=== PATIENT | male | born 1970 | race Caucasian/White ===

== ENCOUNTER 2016-09-30 04:49 | Inpatient (IN) | payer OTHER ==
[~2016-09-30] VITALS: Ht 185.4 cm; Wt 76.4 kg
--- NOTE | ~2016-09-30 | DS ---
Unit #: [id number] #: [id number] Patient: JESSE MONACO [id number] [address] [address] [id number] I MR#: [id number] NAME: JESSE MONACO ROOM: 313 Age: 46 Sex: M Admission Date: 10/01/2016 : 1970 Discharge Date: 10/03/2016 Attending Physician: Stevie Contreras M.D. Primary Care Physician: Henrietta Rondon M.D. DISCHARGE SUMMARY PERTINENT HISTORY AND HOSPITAL COURSE The patient is a 46-year-old male with a history significant for drinking vodka daily over the past ten years. He presented with symptoms of vomiting blood, which suddenly started the night of the admission. During his admission the patient underwent an upper endoscopy that demonstrated esophageal varices. The varies were banded. He had no further episodes of hematemesis. DISCHARGE DIAGNOSES 1. Esophageal variceal bleeding. 2. Alcohol abuse independence. 3. Liver cirrhosis with portal hypertension. DISCHARGE MEDICATIONS 1. Nadolol 20 mg tab 1 p.o. once daily. 2. Protonix 40 mg p.o. once daily. DISCHARGE INSTRUCTIONS Followup with web marketing intern as an outpatient. Dictated by... Albina Muro/rosie TD: 10/06/2016 09:58 JOB #: [id number] DISCHARGE SUMMARY Page 1 of 1 X X DISCHARGE SUMMARY
--- NOTE | ~2016-09-30 | OR ---
Unit #: [id number] #: [id number] Patient: JESSE MONACO [id number] [address] [address] [id number] I MR#: [id number] NAME: JESSE MONACO ROOM: 313 Date of Procedure: 10/01/2016 Admission Date: 10/01/2016 Surgeon: Umair Everett M.D. : 1970 Attending Physician: Stevie Contreras M.D. Primary Care Physician: Henrietta Rondon M.D. OPERATIVE REPORT PROCEDURES PERFORMED Esophagogastroduodenoscopy with banding of esophageal varices. INDICATIONS FOR PROCEDURE A 46-year-old gentleman, who presented with upper GI bleeding. MEDICATIONS Monitored anesthesia. POSTOPERATIVE FINDINGS 1. Grade 3 esophageal varices. Six bands were placed. 2. Esophageal ring and hiatal hernia. 3. Diffuse gastropathy. 4. Normal duodenum and distal duodenum. PLAN Please see inpatient orders for details. DESCRIPTION OF PROCEDURE The patient was explained of the procedure, risks, and benefits along with risks and benefits of anesthesia. He was brought to the endoscopy room. Propofol anesthesia was given. Bite block was placed. The scope was passed down the mouth into the esophagus, stomach, duodenum, and distal duodenum. Findings as described. Six bands were placed in the esophagus using a multi-shooter. Gently, the scope was pulled out. He tolerated it well. No major complications were seen. Dictated by... Albina Ngo/loganl TD: 10/01/2016 12:52 JOB #: [id number] Unit #: [id number] #: [id number] Patient: JESSE MONACO OPERATIVE REPORT Page 1 of 1 X Umair Everett MD X PROCEDURE OPERATIVE NOTE
--- NOTE | ~2016-09-30 | CR72 ---
[facility] A Service of [facility] & [facility] RADIOLOGY TEXT RESULTS PATIENT: JESSE MONACO LOCATION: [facility] 313-01 : 72 UNIT #: [id number] AGE: [address]: LAYNE HAINES V SEX: M ORDER DR: [id number] [facility] [address] [place], [place] [address] [id number] I MR#: [id number] Acc #: [id number] NAME: JESSE MONACO : 1970 SEX: M STUDY DATE/TIME: 09/30/2016 6:38 UNIT: [address] ROOM: [facility] STUDY DESCRIPTION: CR Chest Single View Portable Attending Physician: Layne Haines M.D. Ordering Physician: Estuardo Motta M.D. Primary Care Physician: Henrietta Rondon M.D. MEDICAL IMAGING REPORT This report is preliminary unless electronic signature is present EXAM Single view chest dated 09/30/16 at 0638 hours. COMPARISON None. HISTORY Shortness of air, nausea, vomiting blood for the last 2 days. FINDINGS Single view of the chest was obtained. A single AP portable view of the chest shows both lungs to be clear. The heart is normal in size. The mediastinal contour is normal. No significant bone abnormalities are seen. IMPRESSION Normal portable chest. Dictated by... Mia Lazcano M.D. THIS IS AN ELECTRONICALLY VERIFIED REPORT Mia Lazcano M.D. at 10/02/2016 5:22 PM CPR/pc TD: 09/30/2016 10:46 JOB #: [id number] MEDICAL IMAGING REPORT Page 1 of 1 COPY
--- NOTE | ~2016-09-30 | EKG ---
PATIENT: JESSE MONACO UNIT #: [id number] Ventricular Rate: 96 BPM Atrial Rate: 96 BPM P-R Interval: 152 ms QRS Duration: 88 ms Q-T Interval: 382 ms QTC Calculation(Bezet): 482 ms P [place]: 36 degrees Calculated R [place]: 11 degrees Calculated T [place]: 4 degrees Diagnosis Line: Normal sinus rhythm Diagnosis Line: Low voltage QRS Diagnosis Line: Nonspecific T wave abnormality Diagnosis Line: Abnormal ECG Diagnosis Line: No previous ECGs available Diagnosis Line: Confirmed by SHANTELL SILVA MD ([id number]) on Diagnosis Line: 09/30/2016 3:29:43 PM INTERPRETING MD: ERNESTINE
--- NOTE | ~2016-09-30 | US6 ---
[facility] A Service of [facility] & [facility] RADIOLOGY TEXT RESULTS PATIENT: JESSE MONACO LOCATION: [facility]3A 313-01 : 72 UNIT #: [id number] AGE: [address]: LAYNE HAINES V SEX: M ORDER DR: [id number] [facility] [address] [place], [place] [address] [id number] I MR#: [id number] Acc #: [id number] NAME: JESSE MONACO : 1970 SEX: M STUDY DATE/TIME: 10/01/2016 17:05 UNIT: C3A U ROOM: 313 STUDY DESCRIPTION: US Abdominal Limited Attending Physician: Layne Haines M.D. Ordering Physician: Umair Everett M.D. Primary Care Physician: Henrietta Rondon M.D. MEDICAL IMAGING REPORT This report is preliminary unless electronic signature is present EXAM Ultrasound abdomen limited HISTORY Nausea with vomiting blood for 1 day. No history of abdominal surgery. COMMENT Realtime ultrasonography of the right upper quadrant performed. Comparison is made to a study from 12/22/2011. The liver echotexture is abnormally coarsened and the margins of the liver are irregular. Liver is about 18 cm in sagittal dimension. There is ascites around the liver in the right upper quadrant. Findings are highly suggestive of cirrhosis. This is not a vascular study therefore the status of the hepatic vasculature is not studied. The intrahepatic inferior vena cava is grossly patent in portions. The gallbladder is unremarkable without evidence of stone, wall thickening, or discrete pericholecystic fluid allowing for the presence of preexisting ascites. The common duct is about 7 mm which is mildly enlarged for age group. The right kidney measures 12 x 5.8 x 7.2 cm. Parenchymal thickness is 1.6 cm. No hydronephrosis, shadowing calculus or focal mass appreciated on the right. Pancreas is obscured by overlying bowel gas. IMPRESSION 1. Findings are most consistent with the development of liver, psoriasis since the study of 2011 with ascites in the right upper quadrant around the liver. I would recommend further clinical evaluation. 2. There is no evidence for gallstone, gallbladder wall thickening or pericholecystic fluid. There is however mild enlargement of the common bile duct to about 7 mm. 3. The pancreas is not seen and is obscured by overlying bowel gas. [facility] A Service of [facility] & [facility] RADIOLOGY TEXT RESULTS PATIENT: JESES MONACO LOCATION: [facility] 313-01 : 71 UNIT #: [id number] AGE: [address]: LAYNE HAINES V SEX: M ORDER DR: STAT * RESULT Dictated by... Darling Pimentel M.D. THIS IS AN ELECTRONICALLY VERIFIED REPORT Darling Pimentel M.D. at 10/01/2016 10:58 PM SAMMY/fuad TD: 10/01/2016 18:31 JOB #: [id number] MEDICAL IMAGING REPORT Page 1 of 1 COPY
--- NOTE | ~2016-09-30 | HP ---
Unit #: [id number] #: [id number] Patient: JESSE MONACO [id number] [address] [address] [id number] I MR#: [id number] NAME: JESSE MONACO ROOM: 313 Age: 46 Sex: M Admission Date: 09/30/2016 : 1970 Attending Physician: Stevie Contreras M.D. Primary Care Physician: Henrietta Rondon M.D. HISTORY AND PHYSICAL HISTORY OF PRESENT ILLNESS The patient is a 46-year-old man with a history of drinking 12 oz of vodka daily for over the past ten years. He presents to the emergency department in the middle of the night after vomiting blood. Sudden onset duration prior to arrival. Timing intermittent, intensity severe. No aggravating or relieving factors. PAST MEDICAL HISTORY Hypertension. PAST SURGICAL HISTORY None. MEDICATIONS Not currently on any medications. ALLERGIES Codeine. FAMILY HISTORY Negative. SOCIAL HISTORY Drinks 12 oz of vodka daily for over ten years. REVIEW OF SYSTEMS Positive for nausea. Positive for vomiting. Positive for hematemesis. As per HPI. The rest of the 12 point review of system negative. PHYSICAL EXAMINATION GENERAL: Awake, alert, well built, well nourished. HEENT: Atraumatic and normocephalic. Oropharynx clear. NECK: Supple. Trachea at midline. CARDIOVASCULAR: Regular rate and rhythm. No murmurs. LUNGS: Clear to auscultation bilaterally. ABDOMEN: Soft, nondistended, bowel sounds positive. EXTREMITIES: No edema. No cyanosis. NEUROLOGIC: No focal deficits. DIAGNOSTIC STUDIES LABS: Hemoglobin 10.5, hematocrit 31.9, platelets 121, WBC 5.3. BUN 12, creatinine 0.5, sodium 137, potassium 3.9, AST 93, ALT 25, alk phos 115, INR 1.3. Unit #: [id number] #: [id number] Patient: JESSE MONACO ASSESSMENT AND PLAN 1. Acute gastrointestinal bleeding with hematemesis: Plan is order IV Protonix for gastric acid suppression. Order a gastroenterology consultation. Order IV fluids for hydration. Monitor hemoglobin and hematocrit. Type and screen. 2. Alcohol abuse and dependence: Plan is to order CIWA protocol. Order IV thiamine. 1. Dictated by Albina Muro TD: 09/30/2016 12:26 JOB #: [id number] HISTORY AND PHYSICAL Page 1 of 1 X X HISTORY AND PHYSICAL
[~2016-09-30 04:49] MED LIST: BACTROBAN15 GM TOP; BENAZEPRIL HCL40 MG PO; DOMEBORO PACKE1 EACH TP; NORVASC PO; [UNRECOGNIZED DRUG - MIXTURE] TOP
[2016-09-30 05:26] LABS: BASOPHIL% 0.3 % (0-2.5); EOSINOPHIL% 0.8 % (0.0-7.0); HEMATOCRIT 31.9 % (38.0-50.0); HEMOGLOBIN 10.5 gm/dL (13.0-16.0); LYMPHOCYTE# 1.2 X10e3 (1.0-3.5); LYMPHOCYTE% 22.1 % (17.0-45.0); MEAN CELL VOLUME 100.6 FL (83-96); MEAN CORPUSCULAR HEMOGLOBIN 33.3 PG (28-34); MEAN CORPUSCULAR HGB CONC 33.1 g/dL (30-36); MONOCYTE# 0.7 X10e3 (0-1.0); MONOCYTE% 13.1 % (3.0-12.0); NEUTROPHIL# 3.4 X10e3 (1.5-7.1); NEUTROPHIL% 63.7 % (40-75); PLATELET COUNT 121 X10e3 (140-420); RED BLOOD COUNT 3.17 X10e (3.90-5.60); RED CELL DISTRIBUTION WIDTH 15.3 % (11.0-15.5); WHITE BLOOD COUNT 5.3 X10e3 (4.0-10.5)
[2016-09-30 05:27] LABS: DIFF IND NO
[2016-09-30 05:50] LABS: URINE SOURCE CLEAN CATCH
[2016-09-30 05:54] LABS: URINE APPEARANCE CLEAR; URINE BILIRUBIN NEG (NEG); URINE BLOOD NEG (NEG); URINE COLOR DK YELLOW; URINE GLUCOSE NEG (NEG); URINE KETONE 2+ (NEG); URINE LEUKOCYTE ESTERASE NEG (NEG); URINE NITRATE NEG (NEG); URINE PH 6.5 (5-8); URINE PROTEIN NEG (NEG); URINE SPECIFIC GRAVITY 1.024 (1.003-1.035)
[2016-09-30 05:58] LABS: CULTURE INDICATED? NO
[2016-09-30 06:00] LABS: ALBUMIN SERUM 3.5 g/dL (3.5-5.0); BILIRUBIN, DIRECT 0.5 mg/dL (0.0-0.2); BILIRUBIN,INDIRECT 0.8 mg/dL (0.0-0.9); BILIRUBIN,TOTAL 1.3 mg/dL (0.2-2.0); CALCIUM SERUM 8.4 mg/dL (8.4-10.2); CREATININE SERUM 0.4 mg/dL (0.6-1.4); GLOM FILT RATE Estimated 143.5 mL/min (>60); POTASSIUM 3.7 mmol/L (3.5-5.1); PROTEIN TOTAL SERUM 7.3 g/dL (6.0-8.3)
[2016-09-30 06:11] LABS: INR 1.3; PARTIAL THROMBOPLASTIN TIME 27.8 SECONDS (23.5-31.3); PROTHROMBIN TIME (PATIENT) 13.7 SECONDS (10.0-11.7)
[2016-09-30 10:15] LABS: ALBUMIN SERUM 3.3 g/dL (3.5-5.0); BILIRUBIN,TOTAL 1.6 mg/dL (0.2-2.0); CREATININE SERUM 0.5 mg/dL (0.6-1.4); GLOM FILT RATE Estimated 130.9 mL/min (>60); POTASSIUM 3.9 mmol/L (3.5-5.1); PROTEIN TOTAL SERUM 6.8 g/dL (6.0-8.3)
[2016-09-30 10:57] LABS: THYROID STIMULATING HORMONE 1.66 uIU/ml (0.34-5.60)
[2016-09-30 11:04] LABS: FREE THYROXIN (T4) 1.04 ng/dL (0.58-1.64)
[2016-09-30 11:59] LABS: HEMATOCRIT 30.4 % (38.0-50.0); MEAN CELL VOLUME 100.6 FL (83-96); MEAN CORPUSCULAR HGB CONC 32.8 g/dL (30-36); MEAN PLATELET VOLUME 8.1 FL (6.5-11.5); RED BLOOD COUNT 3.02 X10e (3.90-5.60); RED CELL DISTRIBUTION WIDTH 15.4 % (11.0-15.5); WHITE BLOOD COUNT 5.1 X10e3 (4.0-10.5)
[2016-09-30 17:40] LABS: HEMATOCRIT 28.7 % (38.0-50.0); HEMOGLOBIN 9.8 gm/dL (13.0-16.0)
[2016-10-01 01:07] LABS: HEMATOCRIT 29.1 % (38.0-50.0); HEMOGLOBIN 9.5 gm/dL (13.0-16.0)
[2016-10-01 05:35] LABS: HEMATOCRIT 28.2 % (38.0-50.0); HEMOGLOBIN 9.3 gm/dL (13.0-16.0)
[2016-10-01 12:15] LABS: HEMATOCRIT 30.1 % (38.0-50.0)
[2016-10-02 06:03] LABS: HEMATOCRIT 29.3 % (38.0-50.0); HEMOGLOBIN 9.8 gm/dL (13.0-16.0); MEAN CELL VOLUME 101.9 FL (83-96); MEAN CORPUSCULAR HEMOGLOBIN 34.1 PG (28-34); MEAN CORPUSCULAR HGB CONC 33.5 g/dL (30-36); MEAN PLATELET VOLUME 8.5 FL (6.5-11.5); RED BLOOD COUNT 2.87 X10e (3.90-5.60); RED CELL DISTRIBUTION WIDTH 15.2 % (11.0-15.5); WHITE BLOOD COUNT 4.6 X10e3 (4.0-10.5)
[2016-10-02 06:58] LABS: BILIRUBIN,TOTAL 1.9 mg/dL (0.2-2.0); CALCIUM SERUM 7.8 mg/dL (8.4-10.2); CREATININE SERUM 0.5 mg/dL (0.6-1.4); GLOM FILT RATE Estimated 130.9 mL/min (>60); POTASSIUM 3.8 mmol/L (3.5-5.1); PROTEIN TOTAL SERUM 6.4 g/dL (6.0-8.3)
[2016-10-03 03:15] LABS: URINE APPEARANCE CLEAR; URINE BILIRUBIN NEG (NEG); URINE BLOOD NEG (NEG); URINE COLOR DK YELLOW; URINE GLUCOSE NEG (NEG); URINE KETONE NEG (NEG); URINE LEUKOCYTE ESTERASE NEG (NEG); URINE NITRATE NEG (NEG); URINE PROTEIN NEG (NEG); URINE SPECIFIC GRAVITY 1.013 (1.003-1.035)
[2016-10-03 03:25] LABS: AMPHETAMINE NEG (NEG); BARBITURATES NEG (NEG); BENZODIAZEPINES NEG (NEG); COCAINE NEG (NEG); MARIJUANA NEG (NEG); OPIATES NEG (NEG); TRICYCLIC ANTIDEPRESSANTS NEG (NEG); U METHADONE NEG (NEG)
[2016-10-03 05:53] LABS: HEMOGLOBIN 9.5 gm/dL (13.0-16.0); MEAN CORPUSCULAR HEMOGLOBIN 34.5 PG (28-34); MEAN CORPUSCULAR HGB CONC 33.8 g/dL (30-36); MEAN PLATELET VOLUME 8.6 FL (6.5-11.5); RED BLOOD COUNT 2.75 X10e (3.90-5.60); RED CELL DISTRIBUTION WIDTH 14.9 % (11.0-15.5); WHITE BLOOD COUNT 5.7 X10e3 (4.0-10.5)
[2016-10-03] MEDS ORDERED: NADOLOL20 MG PO (14:03)
[2016-10-03] MEDS ORDERED: MULTIVITAMINS1 EAC3 PO (14:04)
[2016-10-03] MEDS ORDERED: PROTONIX PO (14:04)
[2016-10-07 01:06] LABS: HA AB IGM (HEPPAN) Nonreactive (()); HB CORE AB IGM (HEPPAN) Nonreactive (Nonreactive); HB S AG (HEPPAN) Nonreactive (Nonreactive); HEP C AB (HEPPAN) Nonreactive (Nonreactive); HEP C AB SIGNAL TO CUTOFF 0.18 ratio (<1.00)
== END 2016-10-03 14:30 | disposition home or self-care (01) | DRG 432 ==
LOC: CED 04:49 → C3A PCU 07:20 → CEDOF 07:20 → C3A PCU 07:54 → CEDOF 07:54 → C3A PCU 09:35 → CEDOF 10-01 07:00 → C3A PCU 10-01 07:00
PROVIDERS: Emergency Medicine; Internal Medicine
PROC: 06L34CZ Occlusion of Esophageal Vein with Extraluminal Device, Percutaneous Endoscopic Approach (ICD-10-PCS; principal; 2016-10-01 11:57)
DX: K70.30 Alcoholic cirrhosis of liver without ascites (principal); I85.11 Secondary esophageal varices with bleeding; K70.10 Alcoholic hepatitis without ascites; K76.6 Portal hypertension; F10.20 Alcohol dependence, uncomplicated; I10 Essential (primary) hypertension; Z88.5 Allergy status to narcotic agent; K44.9 Diaphragmatic hernia without obstruction or gangrene; K22.9 Disease of esophagus, unspecified
CPT/HCPCS: 36415; 71010; 76705; 80048; 80053; 80074; 80076; 80307; 81003; 83690; 84439; 84443; 85014; 85018; 85025; 85027; 85610; 85730; 86592; 86850; 86900; 86901; 86923; 93005; 99285; C9113; G0480; J1630; J2250; J2354; J3411; J3475

== ENCOUNTER 2016-11-02 08:28 | Inpatient (IN) | payer OTHER ==
[~2016-11-02] VITALS: Ht 185.4 cm; Wt 75.0 kg
--- NOTE | ~2016-11-02 | CR72 ---
[facility] A Service of [facility] & [facility] RADIOLOGY TEXT RESULTS PATIENT: JESSE MONACO LOCATION: [facility] : 71 UNIT #: [id number] AGE: [address]: Chris Rome DO SEX: M ORDER DR: [id number] [facility] [address] [place], [place] [address] [id number] MR#: [id number] Acc #: [id number] NAME: JESSE MONACO : 1970 SEX: M STUDY DATE/TIME: 11/02/2016 10:10 UNIT: [facility] ROOM: STUDY DESCRIPTION: CR Chest Single View Portable Attending Physician: Chris Rome D.O. Ordering Physician: Chris Rome D.O. Primary Care Physician: Henrietta Rondon M.D. MEDICAL IMAGING REPORT This report is preliminary unless electronic signature is present EXAM Frontal chest 11/02/2016 INDICATION 46-year-old male with fever, nausea, vomiting, and diarrhea. Symptoms began today, hypertension and cirrhosis. Tobacco abuse. TECHNIQUE AND COMPARISON Frontal chest was performed and compared with 09/30/2016. FINDINGS Cardiac silhouette is within normal limits for technique. Lung volumes are low with bronchovascular crowding. The right lung is clear. There is consolidation in the midlung zone on the left most characteristic of pneumonia. This may localize to the superior segment left lower lobe. Follow up to clearing after appropriate therapy is recommended. No effusion or pneumothorax. IMPRESSION 1. Left-sided pneumonia probably localizing to the superior segment left lower lobe. Follow up to clearing after appropriate therapy recommended. STAT * RESULT Dictated by... Solo Hutchins M.D. THIS IS AN ELECTRONICALLY VERIFIED REPORT Solo Hutchins M.D. at 11/02/2016 2:52 PM CHRISTIAN/ingris [facility] A Service of [facility] & [facility] RADIOLOGY TEXT RESULTS PATIENT: JESSE MONACO LOCATION: [facility] : 71 UNIT #: [id number] AGE: [address]: Chris Rome DO SEX: M ORDER DR: TD: 11/02/2016 10:25 JOB #: [id number] MEDICAL IMAGING REPORT Page 1 of 1 COPY
--- NOTE | ~2016-11-02 | DS ---
Unit #: [id number] #: [id number] Patient: JESSE MONACO [id number] [address] [address] [id number] I MR#: [id number] NAME: JESSE MONACO ROOM: 229 Age: 46 Sex: M Admission Date: 11/02/2016 : 1970 Discharge Date: 11/05/2016 Attending Physician: Ravi Avina M.D. Primary Care Physician: Henrietta Rondon M.D. DISCHARGE SUMMARY DISCHARGE DIAGNOSES 1. Healthcare-acquired pneumonia. 2. Hyponatremia. 3. Cirrhosis. 4. Diarrhea. 5. Anemia. 6. History of gastrointestinal bleed from esophageal varices. 7. Tobacco abuse. DISCHARGE MEDICATIONS 1. Colestid 1 g p.o. b.i.d. 2. Nicotine patch, 21 mg daily. 3. Inderal 10 mg t.i.d. 4. Multivitamin daily. 5. Protonix 40 mg daily. 6. Augmentin 875 b.i.d. x6 days. Follow up in office 3 weeks for chest x-ray. Patient admitted to the hospital with a left sided pneumonia. Because he had been hospitalized within the last month, he was treated with vancomycin and Zosyn for possible healthcare-acquired pneumonia with Gram-negative or MRSA. He remained on those antibiotics until sputum culture returned normal tere. He has now been switched to Augmentin to complete his course of antibiotics. Follow up chest x-ray showed no change. Of note, on admission his sodium was 122, by discharge it was 133 with infusion of normal saline. His thyroid function tests were normal. Lactic acid level was 1.2. White blood cell count on admission was 9000 and 5.3 thousand on discharge. Strep pneumonia antigen and legionella antigen were negative. He currently feels improved and will be discharged home. A followup chest x-ray will be done in 3 weeks to ensure clearing and if it does not clear we will need CT scan for evaluation. Also note - patient was seen by Dr. Everett for his cirrhosis and diarrhea. Stool cultures were negative. C. diff was negative. He was started on Colestid with improvement per Dr. Everett and he will follow up in Dr. Everett's office per his recommendations. Dictated by... Dawti Lees M.D. Unit #: [id number] #: [id number] Patient: JESSE MONACO MERNA/manoj TD: 11/06/2016 11:39 JOB #: [id number] CC: Umair Everett M.D. DISCHARGE SUMMARY Page 1 of 1 X Dawit Lees MD X DISCHARGE SUMMARY
--- NOTE | ~2016-11-02 | HP ---
Unit #: [id number] #: [id number] Patient: JESSE CASTILLO [id number] [address] [place], [place] [address] [id number] I MR#: [id number] NAME: JESSE CASTILLO ROOM: 229 Age: 46 Sex: M Admission Date: 11/02/2016 : 1970 Attending Physician: Ravi Avina M.D. Primary Care Physician: Henrietta Rondon M.D. HISTORY AND PHYSICAL HISTORY Mr. Castillo is a 46-year-old white male who was last admitted to the hospital in mid September of this year by the [facility] service. He is apparently followed by Dr. Rondon, but he has not seen her in the last 2 years. Because he had a history of seeing Dr. Rondon in the past, we were called to admit the patient despite [facility] having seen him one month ago. At that time he was admitted with GI bleeding from esophageal varices. He was found to have grade 3 esophageal varices. Six bands were placed. He also had an esophageal ring and a hiatal hernia with diffuse gastropathy. He was noted to have cirrhosis and portal hypertension and was to follow up with a table keeper at [facility]. He represented to the hospital at one of the [facility] facilities October 24 and had some scrotal swelling and abdominal swelling. As far as I can tell, he was not treated. He apparently has had more diarrhea and fullness in his belly over the last couple of days and presented to the emergency room here. He had also had a high fever to 103. He says that his blood pressure was also markedly elevated at home. When he arrived here, his blood pressure was recorded at 148/89, his pulse was 98, his respiratory rate was 16, his temperature was 99.3. subsequent followup temperature was 103.5. His lab work was significant for a sodium of 122. Last admission sodium was 134. His potassium is 3.1, creatinine was 0.6. Albumin was 3. Liver function tests were normal. Lactic acid level was 1.2 and 1.5. Alcohol level was less than 5. No coagulation studies were done. White count was 9,000, hematocrit was 34.6, platelet count was 81,000. Urinalysis was remarkable for 1+ ketones and trace protein. We have been called to admit the patient. PAST MEDICAL HISTORY His past medical history - History of hypertension, history of cirrhosis with portal hypertension, esophageal varices status post banding. HOME MEDICATIONS He was discharged on Nadolol 20 mg daily and Protonix according to his list of medications; though, I am told he was on Inderal 10 mg t.i.d. and Protonix 40 mg daily. ALLERGIES Allergies of codeine. PAST SURGICAL HISTORY He lists no surgical procedures other than EGD and banding. FAMILY HISTORY Negative for lung disease. Unit #: [id number] #: [id number] Patient: JESSE CASTILLO SOCIAL HISTORY Used to drink 12 ounces of vodka a day for over 10 years. He has not had any alcohol since he was admitted here in mid september. He does smoke a pack and a half of cigarettes a day. He is . 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 He says he does not have insurance. REVIEW OF SYSTEMS CONSTITUTIONAL: Has had fever and chills. HEENT: No rhinorrhea, nasal congestion. PULMONARY: Some mild cough. No hemoptysis. No purulent sputum. CARDIAC: No chest pain or palpitations. GI: He has had some nausea and diarrhea, decreased p.o. intake. : No hematuria, dysuria. ENDOCRINE: No polyuria, polydipsia. HEMATOLOGIC: No easy bruising, bleeding. He has not passed any blood in his bowels. He has not had black or tarry stools. NEUROLOGIC: No unilateral weakness or numbness. SKIN: No rash. PHYSICAL EXAM GENERAL: White male in no distress. VITAL SIGNS: Blood pressure 122/88, pulse 90, respiratory rate 18, afebrile. T max 103.5. HEENT: Normocephalic, atraumatic. Pupils equal, round, reactive. Sclerae nonicteric. Nasal passages patent. Posterior pharynx clear. Mucous membranes moist. NECK: Supple. Trachea midline. LUNGS: Fairly clear bilaterally. CARDIAC: Regular rate and rhythm. Could not appreciate murmur, rub or gallop. ABDOMEN: Fluid wave present. No hepatosplenomegaly. EXTREMITIES: Without clubbing, cyanosis or edema. NEUROLOGIC: Awake, oriented x3. Cranial nerves grossly intact. Muscle strength symmetric. PSYCHIATRIC: Affect calm. SKIN: Skin is warm and dry. DIAGNOSTIC STUDIES LABORATORY STUDIES: Yesterday's sodium was 122; this morning 127. Current potassium is 3.1. Liver function tests normal. Albumin 3.0. Lactic acid 1.2. TSH has been drawn, is 2.1. Previous free T4 was normal. Alcohol level less than 5. White blood cell count was 9,000, hematocrit 34.6, platelet 81,000. Previous platelet count was a low of 92,000 on December 02. Hepatitis studies were negative. Legionella antigen negative. Strep pneumonia antigen negative. IMPRESSION 1. Diarrhea, rule out infectious etiology. 2. Left-sided infiltrate consistent with healthcare-acquired pneumonia, possible MRSA or gram-negative. 3. Cirrhosis. 4. History of variceal bleeding status post banding. 5. High blood pressure. 6. Tobacco abuse. 7. History of alcohol abuse. PLAN Broad-spectrum antibiotics to cover MRSA and gram-negative. Will check Unit #: [id number] #: [id number] Patient: JESSE CASTILLO stool samples for C. diff., O and P, and enteric pathogens. Will have Dr. Everett see in followup. Will repeat chest x-ray. Will check sputum culture. DVT prophylaxis with SCD hose. Further recommendations pending this. Dictated by Albina Melara/maribeth TD: 11/03/2016 12:40 JOB #: [id number] CC: Umair Everett M.D. HISTORY AND PHYSICAL Page 1 of 1 X Dawit Lees MD X HISTORY AND PHYSICAL
--- NOTE | ~2016-11-02 | CT2 ---
[facility] A Service [facility] RADIOLOGY TEXT RESULTS PATIENT: JESSE MONACO LOCATION: C2 : 71 UNIT #: [id number] AGE: [address]: Ravi Avina MD SEX: M ORDER DR: [id number] [place] [address] [place], [place] [address] [id number] I MR#: [id number] Acc #: [id number] NAME: JESSE MONACO : 1970 SEX: M STUDY DATE/TIME: 11/02/2016 11:27 UNIT: [facility] ROOM: 229 STUDY DESCRIPTION: CT Abd and Pelv W Cont Attending Physician: Ravi Avina M.D. Ordering Physician: Chris Rome D.O. Primary Care Physician: Henrietat Rondon M.D. MEDICAL IMAGING REPORT This report is preliminary unless electronic signature is present EXAM Abdomen and pelvis CT with contrast HISTORY Abdominal pain, fever and diarrhea. The pain is predominantly periumbilical. History of chronic cirrhosis. Symptoms for the past 2 days. TECHNIQUE Axial images were obtained with intravenous contrast. 100 mL of Isovue was used. This CT exam was performed with one or more of the following radiation dose reduction techniques: Automatic exposure control, adjustment of mA and/or kV according to patient size, and iterative reconstruction. FINDINGS The liver is small with irregular margins with cirrhotic architecture. No focal liver masses are seen. The spleen, kidneys, adrenals and pancreas are unremarkable. There is a moderately large volume of ascites. No distended bowel loops are seen. Multiple varices are seen extending along the left gastric vein up to the esophagus. In the pelvis, ascites is noted. There is no evidence of pelvic adenopathy or mass. IMPRESSION Moderately large volume of ascites with cirrhosis and portal hypertension with gastroesophageal varices. No acute or inflammatory changes seen. Dictated by... Estuardo Monk M.D. [facility] A Service [facility] RADIOLOGY TEXT RESULTS PATIENT: JESSE MONACO LOCATION: [facility] : 71 UNIT #: [id number] AGE: [address]: Ravi Avina MD SEX: M ORDER DR: THIS IS AN ELECTRONICALLY VERIFIED REPORT Estuardo Monk M.D. at 11/04/2016 6:00 AM ASHKAN/sammi TD: 11/03/2016 08:02 JOB #: [id number] MEDICAL IMAGING REPORT Page 1 of 1 COPY
--- NOTE | ~2016-11-02 | CR63 ---
[facility] A Service of [facility] RADIOLOGY TEXT RESULTS PATIENT: JESSE MONACO LOCATION: C2A 229-01 : 71 UNIT #: [id number] AGE: [address]: Ravi Avina MD SEX: M ORDER DR: [id number] [facility] [address] [place], [place] [address] [id number] I MR#: [id number] Acc #: [id number] NAME: JESSE MONACO : 1970 SEX: M STUDY DATE/TIME: 11/03/2016 6:58 UNIT: C2A ROOM: 229 STUDY DESCRIPTION: CR Chest 2 View Attending Physician: Ravi Avina M.D. Ordering Physician: Oscar Mitchell M.D. Primary Care Physician: Henrietta Rondon M.D. MEDICAL IMAGING REPORT This report is preliminary unless electronic signature is present EXAM Chest x-ray 11/03 INDICATION Abdominal pain with nausea, vomiting, hypertension, shortness of air since 11/01/2016. FINDINGS PA and lateral views of the chest are compared with 11/02/2016. Heart size remains normal. Right lung is clear. There is still left upper lobe infiltrate but it does appear slightly improved from yesterday. No pneumothorax is seen. IMPRESSION Improved but persistent left upper lobe infiltrate. Dictated by... Estuardo Chambers Jr., M.D. THIS IS AN ELECTRONICALLY VERIFIED REPORT Estuardo Chambers Jr., M.D. at 11/03/2016 4:38 PM ARNOLD/heather TD: 11/03/2016 14:15 JOB #: [id number] MEDICAL IMAGING REPORT Page 1 of 1 COPY
--- NOTE | ~2016-11-02 | CT71 ---
[facility] A Service [facility] RADIOLOGY TEXT RESULTS PATIENT: JESSE MONACO LOCATION: [facility] : 72 UNIT #: [id number] AGE: [address]: Ravi Avina MD SEX: M ORDER DR: [id number] [facility]. [place], [place] [address] [id number] MR#: [id number] Acc #: [id number] NAME: JESSE MONACO : 1970 SEX: M STUDY DATE/TIME: 11/02/2016 11:25 UNIT: [facility] ROOM: 229 STUDY DESCRIPTION: CT Head Wo Contrast Attending Physician: Ravi Avina M.D. Ordering Physician: Crhis Rome D.O. Primary Care Physician: Henrietta Rondon M.D. MEDICAL IMAGING REPORT This report is preliminary unless electronic signature is present EXAM Head CT without contrast HISTORY Headache left posterior area for the past 2 days. TECHNIQUE Axial images were obtained without contrast. This CT examination was performed with one or more of the following radiation dose reduction techniques: automatic exposure control, adjustment of mA and/or kV according to patient size, and iterative reconstruction. FINDINGS Mild generalized cortical atrophy is seen. There is no evidence of mass lesion, hemorrhage or edema. No midline shift is seen. Extraaxial structures are unremarkable. IMPRESSION Mild generalized cortical atrophy. No acute findings. Dictated by... Estuardo Monk M.D. THIS IS AN ELECTRONICALLY VERIFIED REPORT Estuardo Monk M.D. at 11/04/2016 6:00 AM ASHKAN/heather TD: 11/03/2016 08:06 JOB #: [id number] MEDICAL IMAGING REPORT [facility] A Service [facility] RADIOLOGY TEXT RESULTS PATIENT: JESSE MONACO LOCATION: [facility] : 72 UNIT #: [id number] AGE: [address]: Ravi Avina MD SEX: M ORDER DR: Page 1 of 1 COPY
--- NOTE | ~2016-11-02 | CR63 ---
[facility] A Service of [facility] RADIOLOGY TEXT RESULTS PATIENT: JESSE MONACO LOCATION: C2A 229-01 : 72 UNIT #: [id number] AGE: [address]: Ravi Avina MD SEX: M ORDER DR: [id number] [facility] [address] [place], [place] [address] [id number] MR#: [id number] Acc #: [id number] NAME: JESSE MONACO : 1970 SEX: M STUDY DATE/TIME: 11/04/2016 7:33 UNIT: C2A ROOM: 229 STUDY DESCRIPTION: CR Chest 2 View Attending Physician: Ravi Avina M.D. Ordering Physician: Ravi Avina M.D. Primary Care Physician: Henrietta Rondon M.D. MEDICAL IMAGING REPORT This report is preliminary unless electronic signature is present EXAM Chest x-ray 11/04 INDICATIONS Shortness of air, abdominal pain, nausea and vomiting for 3 days. History of smoking and hypertension. FINDINGS Two views of the chest compared with 11/03/2016. Cardiac and mediastinal contours are normal. The right lung remains clear. Left upper lobe infiltrate is unchanged. No pneumothorax. IMPRESSION No change from yesterday. Stable left upper lobe infiltrate. Dictated by... Estuardo Chambers Jr., M.D. THIS IS AN ELECTRONICALLY VERIFIED REPORT Estuardo Chambers Jr., M.D. at 11/05/2016 2:08 PM ARNOLD/barb TD: 11/04/2016 09:53 JOB #: [id number] MEDICAL IMAGING REPORT Page 1 of 1 COPY
[~2016-11-02 08:28] MED LIST changes: +MULTIVITAMINS1 EAC3 PO; +NADOLOL20 MG PO; +PROTONIX PO
[2016-11-02 09:34] LABS: BASOPHIL% 0.3 % (0-2.5); HEMATOCRIT 34.6 % (38.0-50.0); HEMOGLOBIN 11.5 gm/dL (13.0-16.0); LYMPHOCYTE# 0.7 X10e3 (1.0-3.5); LYMPHOCYTE% 7.5 % (17.0-45.0); MEAN CELL VOLUME 91.7 FL (83-96); MEAN CORPUSCULAR HEMOGLOBIN 30.6 PG (28-34); MEAN CORPUSCULAR HGB CONC 33.4 g/dL (30-36); MEAN PLATELET VOLUME 8.5 FL (6.5-11.5); MONOCYTE# 0.7 X10e3 (0-1.0); MONOCYTE% 7.4 % (3.0-12.0); NEUTROPHIL# 7.6 X10e3 (1.5-7.1); NEUTROPHIL% 84.8 % (40-75); RED BLOOD COUNT 3.77 X10e (3.90-5.60); RED CELL DISTRIBUTION WIDTH 17.7 % (11.0-15.5)
[2016-11-02 09:57] LABS: DIFF IND YES; PLATELET COUNT 81 X10e3 (140-420)
[2016-11-02 09:59] LABS: URINE SOURCE CLEAN CATCH
[2016-11-02 10:00] LABS: ANISOCYTOSIS SL; PLATELET ESTIMATE DECREASED (NORMAL)
[2016-11-02 10:09] LABS: ALBUMIN SERUM 3.3 g/dL (3.5-5.0); BILIRUBIN, DIRECT 0.5 mg/dL (0.0-0.2); BILIRUBIN,INDIRECT 0.8 mg/dL (0.0-0.9); BILIRUBIN,TOTAL 1.3 mg/dL (0.2-2.0); BUN/CREATININE RATIO 11.66; CALCIUM SERUM 8.2 mg/dL (8.4-10.2); CREATININE SERUM 0.6 mg/dL (0.6-1.4); GLOM FILT RATE Estimated 121.5 mL/min (>60); POTASSIUM 3.5 mmol/L (3.5-5.1); PROTEIN TOTAL SERUM 7.6 g/dL (6.0-8.3)
[2016-11-02 10:18] LABS: URINE APPEARANCE CLEAR; URINE BLOOD NEG (NEG); URINE COLOR DK YELLOW; URINE GLUCOSE NEG (NEG); URINE KETONE 1+ (NEG); URINE LEUKOCYTE ESTERASE NEG (NEG); URINE NITRATE NEG (NEG); URINE PH 5.5 (5-8); URINE PROTEIN TRACE (NEG); URINE SPECIFIC GRAVITY 1.027 (1.003-1.035)
[2016-11-02 10:32] LABS: URINE BILIRUBIN NEG (NEG)
[2016-11-02 10:33] LABS: CULTURE INDICATED? NO
[2016-11-02 16:01] LABS: SODIUM URINE RANDOM 62 mmol/L
[2016-11-02 16:34] LABS: OSMOLALITY,URINE 861 mOsmo/kg (250-900)
[2016-11-02] MEDS ORDERED: PROPRANOLOL HCL10 MG PO (18:28)
[2016-11-02] MEDS ORDERED: PROTONIX PO (18:28)
[2016-11-02] MEDS ORDERED: MULTIVITAMINS1 EAC4 PO (18:28)
[2016-11-02 19:24] LABS: BUN/CREATININE RATIO 12.85; CALCIUM SERUM 7.9 mg/dL (8.4-10.2); CREATININE SERUM 0.7 mg/dL (0.6-1.4); POTASSIUM 3.6 mmol/L (3.5-5.1); PROTEIN TOTAL SERUM 6.9 g/dL (6.0-8.3)
[2016-11-03 06:19] LABS: BASOPHIL% 0.6 % (0-2.5); HEMOGLOBIN 10.1 gm/dL (13.0-16.0); LYMPHOCYTE# 0.9 X10e3 (1.0-3.5); LYMPHOCYTE% 15.8 % (17.0-45.0); MEAN CELL VOLUME 92.2 FL (83-96); MEAN CORPUSCULAR HEMOGLOBIN 30.9 PG (28-34); MEAN CORPUSCULAR HGB CONC 33.5 g/dL (30-36); MEAN PLATELET VOLUME 8.9 FL (6.5-11.5); MONOCYTE# 0.7 X10e3 (0-1.0); MONOCYTE% 12.2 % (3.0-12.0); NEUTROPHIL# 3.9 X10e3 (1.5-7.1); NEUTROPHIL% 71.4 % (40-75); PLATELET COUNT 77 X10e3 (140-420); RED BLOOD COUNT 3.26 X10e (3.90-5.60); RED CELL DISTRIBUTION WIDTH 17.5 % (11.0-15.5); WHITE BLOOD COUNT 5.4 X10e3 (4.0-10.5)
[2016-11-03 06:25] LABS: DIFF IND NO
[2016-11-03 06:38] LABS: BUN/CREATININE RATIO 13.33; CALCIUM SERUM 7.5 mg/dL (8.4-10.2); CREATININE SERUM 0.6 mg/dL (0.6-1.4); GLOM FILT RATE Estimated 121.5 mL/min (>60); POTASSIUM 3.1 mmol/L (3.5-5.1)
[2016-11-03 10:19] LABS: LEGIONELLA AG URINE NEG (NEG)
[2016-11-04 01:42] LABS: HEMATOCRIT 27.4 % (38.0-50.0); HEMOGLOBIN 9.1 gm/dL (13.0-16.0); MEAN CELL VOLUME 92.7 FL (83-96); MEAN CORPUSCULAR HEMOGLOBIN 30.7 PG (28-34); MEAN CORPUSCULAR HGB CONC 33.1 g/dL (30-36); MEAN PLATELET VOLUME 8.5 FL (6.5-11.5); RED BLOOD COUNT 2.95 X10e (3.90-5.60); RED CELL DISTRIBUTION WIDTH 17.3 % (11.0-15.5); WHITE BLOOD COUNT 5.3 X10e3 (4.0-10.5)
[2016-11-04 02:13] LABS: BUN/CREATININE RATIO 11.66; CALCIUM SERUM 7.7 mg/dL (8.4-10.2); CREATININE SERUM 0.6 mg/dL (0.6-1.4); GLOM FILT RATE Estimated 121.5 mL/min (>60); POTASSIUM 3.4 mmol/L (3.5-5.1)
[2016-11-05 08:04] LABS: BUN/CREATININE RATIO 8.33; CALCIUM SERUM 8.3 mg/dL (8.4-10.2); CREATININE SERUM 0.6 mg/dL (0.6-1.4); GLOM FILT RATE Estimated 121.5 mL/min (>60); POTASSIUM 3.5 mmol/L (3.5-5.1)
[2016-11-05] MEDS ORDERED: AUGMENTIN PO (14:24)
[2016-11-05] MEDS ORDERED: COLESTID PO (14:29)
== END 2016-11-05 15:16 | disposition home or self-care (01) | DRG 194 ==
LOC: CED 08:28 → CEDOF 13:18 → C2A 16:07 → CED 16:07 → C2A 18:04 → CEDOF 18:04 → C2A 11-05 15:16
PROVIDERS: Emergency Medicine; Internal Medicine
DX: J18.9 Pneumonia, unspecified organism (principal); K76.6 Portal hypertension; K74.60 Unspecified cirrhosis of liver; E87.1 Hypo-osmolality and hyponatremia; I10 Essential (primary) hypertension; R19.7 Diarrhea, unspecified; Z88.5 Allergy status to narcotic agent; F17.210 Nicotine dependence, cigarettes, uncomplicated; D64.9 Anemia, unspecified; F10.21 Alcohol dependence, in remission
CPT/HCPCS: 70450; 71010; 71020; 74177; 80048; 80053; 80076; 80202; 81003; 83605; 83690; 83935; 84300; 84443; 85025; 85027; 87040; 87045; 87070; 87177; 87205; 87209; 87427; 87449; 87493; 87899; G0480; J2405; J2543; J3260; J3370; Q9967